=== PATIENT | male | born 1960 | race Caucasian/White ===

== ENCOUNTER 2017-09-19 07:44 | Emergency (ER) | payer OTHER, BC ==
[2017-09-19 07:50] VITALS: TEMP 99.7; BMI 25.0
[2017-09-19 08:15] LABS: BASOPHIL 1.1 % (0-2.0); EOSINOPHIL 0.4 % (0-4.5); MCH 31.9 pg (25.7-33.7); MCHC 33.9 g/dl (32.0-35.9); MEAN CELL VOLUME 94.1 fl (80-96); MEAN PLT VOLUME 9.1 fl (7.5-11.1); NEUTROPHILS 60.6 % (42.8-82.8); PLATELET COUNT 250 K/MM3 (134-434); RDW 12.8 % (11.9-15.9); WHITE BLOOD COUNT 7.4 K/mm3 (4.0-10.8)
[2017-09-19 08:24] LABS: ALBUMIN 4.5 g/dl (3.5-5.0); ALK PHOS 35 U/L (32-92); ANION GAP 9 (8-16); BILIRUBIN,TOTAL 0.9 mg/dl (0.2-1.0); CALCIUM 9.1 mg/dl (8.4-10.2); CO2 25 mmol/L (22-28); CREATININE 0.9 mg/dl (0.6-1.3); GLUCOSE,RANDOM 110 mg/dl (74-106); SGOT/AST 23 U/L (10-42); SGPT/ALT 19 U/L (10-40); TOT PROT 6.9 g/dl (6.4-8.3)
--- NOTE | 2017-09-19 08:32 | PDOC ---
History of Present Illness - General Chief Complaint: Chest Pain Stated Complaint: chest pain/palp Time Seen by Provider: 09/19/17 07:54 - History of Present Illness Initial Comments: 09/19/17 08:33 Chief complaint: Chest pain History of present illness: 57 years old past medical history significant for hypertension, active tobacco, positive family history of coronary artery disease presents to the emergency department with 3-4 day history of intermittent left-sided chest discomfort sharp intermittent sometimes with pain in the left arm. The dizziness no diaphoresis no nausea no exertional component. No travel no history of PE DVT no tearing discomfort. Patient has had workup in the past 2 years ago had a normal catheterization no workup since then. Still smokes Past History - Travel Traveled outside of the country in the last 30 days: No Close contact w/someone who was outside of country & ill: No - Past Medical History Allergies/Adverse Reactions: Allergies Allergy/AdvReac Type Severity Reaction Status Date / Time No Known Allergies Allergy Verified 09/19/17 07:45 Home Medications: Ambulatory Orders Amlodipine Besylate 5 mg PO DAILY 06/19/16 Aspirin [ASA -] 162 mg PO ONCE 06/19/16 COPD: No HTN: Yes Kidney Stones: Yes - Suicide/Smoking/Psychosocial Hx Smoking History: Current every day smoker Have you smoked in the past 12 months: Yes Number of Cigarettes Smoked Daily: 6 Information on smoking cessation initiated: Yes 'Breaking Loose' booklet given: 09/19/17 Hx Alcohol Use: Yes Drug/Substance Use Hx: No Substance Use Type: Alcohol Review of Systems - Review of Systems Comments:: 09/19/17 08:34 ROS: A complete review of 10 out of 10 review of systems is taken and is negative apart from what is previously mentioned below and in the HPI. *Physical Exam - Vital Signs Last Vital Signs Temp Pulse Resp BP Pulse Ox 99.7 F H 121 H 18 156/99 100 09/19/17 07:45 09/19/17 07:45 09/19/17 07:45 09/19/17 07:45 09/19/17 07:45 - Physical Exam Comments: 09/19/17 08:34 Vitals: Triage Vital signs reviewed General Appearance: no acute distress, well nourished well developed, Head: Atraumatic, Neck: Supple;No Nucal rigidity Chest Wall: Nontender Cardiac: Regular rate and rhythym, no murmurs, no rubs, no gallops, Lungs: Clear to auscultation bilateral, good air movement bilaterally, Abdomen: Soft, non distended, normal bowel sounds, non tender to palpation Extremities: Full range of motion to all extremities, no cyanosis, clubbing, or edema Skin: Warm and dry, no rashes or lesions, no rash, no petechiae Neuro: AOX3; Cranial Nerves 2-12 grossly intact, Strength intact to all extremities, Sensation intact to all extremities,gait normal Psych: normal mood, normal affect Heart Score/ECG Review - History History: Moderately suspicious - Electrocardiogram EKG: Significant ST-depression - Age Age: 45-65 - Risk Factors Risk Factors Heart Score: Yes Hx Hypertension, Yes Smoking History, Yes Positive family hx of cardiac disease Based on the list above the patient has:: >/=3 risk factors or Hx atherosclerotic disease - Score Heart Score - Total: 5 - ECG Intrepretation Rhythm: Regular Rhythm - QRS Widened: RBBB - ECG Impressions Normal ECG: No Non-specific ST Elevation: No Comment:: 09/19/17 08:[address] depressions anteriorly, Q waves in lead to right bundle- branch block. Based on reading not images from 2016 these findings appear unchanged ED Treatment Course - LABORATORY CBC & Chemistry Diagram: 09/19/17 07:55 09/19/17 07:55 - RADIOLOGY Radiology Studies Ordered: Category Date Time Status CXRPORT [CHEST X-RAY PORTABLE*] [RAD] Stat Radiology 09/19/17 07:58 Ordered Medical Decision Making - Medical Decision Making 09/19/17 18:06 With heart score of 5 presents with seconds of intermittent left-sided chest discomfort. Abnormal EKG but appears unchanged from baseline First troponin negative recommended admission to patient. Patient is adamant he cannot stay in the hospital he has a wake in the morning. He was amenable to staying for second troponin. Greater than 20 minutes spent the patient's bedside trying to convince him to stay and explaining risks of missing a potential angina unstable angina or UT. Despite my best efforts patient understands risks and benefits and decided to leave hospital AMA after second troponin which was also negative The patient is presenting with chest pain.I am concerned that this may be cardiac The patient has verbalized understanding of my concerns. The patient is clinically sober and appears free from distracting injury. The patient appears to have intact insight, judgment, and reason. In my opinion, this patient has the capacity to make decisions The risks of leaving against medical advice without further evaluation treatment were discussed with the patient. These risks include heart attack , permanent disability. The patient indicated understanding of these risks and appeared to have the capacity to make this decision. The patient is unwilling to stay for a admission and further evaluation. He is unwilling to remain for additional monitoring. He is refusing further care and leaving against medical advice I'm unable to convince the patient to stay. I have asked the patient to return as soon as possible to complete his/her evaluation. Patient states he'll follow up with his manager action in 1-2 days. *DC/Admit/Observation/Transfer Diagnosis at time of Disposition: Chest pain Qualifiers: Chest pain type: unspecified Qualified Code(s): R07.9 - Chest pain, unspecified - Discharge Dispostion Condition at time of disposition: Stable Admit: No - Referrals - Patient Instructions Printed Discharge Instructions: DI for Chest Pain Additional Instructions: Follow-up with your manager action in 1-2 days. Return to the emergency department for any severe worsening symptoms or for any concerns. - Post Discharge Activity
[2017-09-19 09:43] LABS: TROPONIN I < 0.03 ng/ml (0.00-0.05)
[2017-09-19 11:57] LABS: CPK 73 IU/L (39-308)
[2017-09-19 12:03] VITALS: BP 141/72; PULSE 84
[2017-09-19 12:08] LABS: TROPONIN I (DFP) < 0.03 ng/ml (0.03-0.50)
--- NOTE | 2017-09-20 22:24 | EKG ---
Test Reason : Blood Pressure : / mmHG Vent. Rate : 105 BPM Atrial Rate : 105 BPM P-R Int : 136 ms QRS Dur : 134 ms QT Int : 348 ms P-R-T Axes : 071 022 029 degrees QTc Int : 459 ms SINUS TACHYCARDIA RIGHT BUNDLE BRANCH BLOCK POSSIBLE INFERIOR INFARCT , AGE UNDETERMINED ST MARKED ST ABNORMALITY, POSSIBLE ANTERIOR SUBENDOCARDIAL INJURY ABNORMAL ECG NO PREVIOUS ECGS AVAILABLE Confirmed by ARIANNE MIDDLETON MD ([id number]) on 09/20/2017 10:24:42 PM Referred By: Confirmed By:ARIANNE MIDDLETON MD
== END 2017-09-19 12:37 | disposition home or self-care (01) ==
LOC: FER 07:44
DX: R07.9 Chest pain, unspecified (principal); I10 Essential (primary) hypertension; F17.210 Nicotine dependence, cigarettes, uncomplicated
CPT/HCPCS: 36415; 71010-TC; 80053; 82550; 84484; 85025; 85730; 86850; 86900; 86901; 93005; 99284-25

== ENCOUNTER 2023-04-07 08:04 | Day surgery (SDC) | payer BC, OTHER ==
[2023-04-04 14:51] VITALS: BMI 23.0
[2023-04-07] MEDS ORDERED: PROPOFOL 80 ML ONE (09:05)
[2023-04-07 09:25] VITALS: RESP 20; TEMP 97.1
[2023-04-07 09:41] VITALS: BP 112/61; PULSE 92
== END 2023-04-07 09:40 | disposition home or self-care (01) ==
LOC: FASU-ENDO 08:04
PROVIDERS: ATTEND Internal Medicine Gastroenterology
PROC: 0DBN8ZX Excision of Sigmoid Colon, Via Natural or Artificial Opening Endoscopic, Diagnostic (ICD-10-PCS; principal; 2023-04-07 08:45)
DX: Z12.11 Encounter for screening for malignant neoplasm of colon (principal); Z86.010 Personal history of colon polyps; Z80.0 Family history of malignant neoplasm of digestive organs; K63.5 Polyp of colon; K57.30 Diverticulosis of large intestine without perforation or abscess without bleeding
CPT/HCPCS: 88305-TC